=== PATIENT | male | born 1970 | race Caucasian/White ===

== ENCOUNTER 2020-09-19 19:29 | Emergency (ER) | payer BC ==
[~2020-09-19] VITALS: Ht 152.4 cm; Wt 83.6 kg
[~2020-09-19 19:29] MED LIST: CEPH-571 PO; CYCL-1 PO; IBUP-1986 PO; PRED50TA PO
[2020-09-19] MEDS ORDERED: LIDOcaine 1% W/epiNEPHrine 1:200,000 10ml vial IJ ONE (21:35)
[2020-09-19 22:57] VITALS: BP 115/76
== END 2020-09-19 22:59 | disposition home or self-care (01) ==
LOC: ER 19:29
DX: S61.213A Laceration without foreign body of left middle finger without damage to nail, initial encounter (principal); Z88.8 Allergy status to other drugs, medicaments and biological substances; Z79.899 Other long term (current) drug therapy; W22.8XXA Striking against or struck by other objects, initial encounter; Y93.89 Activity, other specified; Y92.89 Other specified places as the place of occurrence of the external cause; Y99.8 Other external cause status
CPT/HCPCS: 12001; 12002; 73140; 99283